=== PATIENT | male | born 1995 | race Caucasian/White ===

== ENCOUNTER 2023-04-12 20:42 | Emergency (ER) | payer SELFPAY ==
[~2023-04-12] VITALS: Ht 185 cm; Wt 131.0 kg
[2023-04-12 21:00] VITALS: BP 151/93
[2023-04-12] MEDS ORDERED: Tetanus/Diphtheria/Pertussis (Acell) ADULT Vaccine 0.5 ML IM ONE (21:15)
--- NOTE | 2023-04-12 21:16 | ED Upper Extremity ---
General Chief Complaint: Foreign Body Stated Complaint: INJ RIGHT THUMB Nursing Triage Note: PT AMB TO TRIAGE, PT HAS TREBLE HOOK IN R THUMB. PT RATES PAIN 4/10 Source: patient Exam Limitations: no limitations (ALANA LONDON APRN) History of Present Illness Date Seen by Provider: Apr 12, 2023 Time Seen by Provider: 21:13 Initial Comments 28-year-old male presents to the ER with a fishhook in his right thumb. States it occurred just before 8 PM. Tetanus is not up-to-date. (ALANA LONDON APRN) Allergies and Home Medications Allergies Coded Allergies: No Known Drug Allergies (Unverified , 04/12/23) Patient Home Medication List Home Medication List Reviewed: Yes (ALANA LONDON APRN) Sulfamethoxazole/Trimethoprim (Bactrim Ds Tablet) 1 Each Tablet, 1 EACH PO BID Prescribed by: Alana Lindsey on 04/12/232153 Review of Systems Constitutional: see HPI (ALANA LONDON APRN) Past Sytncrq-Zeixgs-Cgirti Hx Patient Social History Tobacco Use?: No Smokeless Tobacco Frequency: Current Everyday User Substance use?: No Alcohol Use?: Yes Alcohol type: Beer Alcohol Frequency: Once in a while Pt feels they are or have been: No (ALANA LONDON APRN) Past Medical History Surgery/Hospitalization HX: HERNIA IN[facility] (ALANA LONDON APRN) Physical Exam Vital Signs Vital Signs - First Documented 04/12/23 21:00 Temp 36.4 Pulse 98 Resp 18 B/P (MAP) 151/93 (112) Pulse Ox 95 (YOLIS,IRENE K DO) Vital Signs Capillary Refill : Less Than 3 Seconds (ALANA LONDON APRN) Height, Weight, BMI Height: '" Weight: lbs. oz. kg; 38.00 BMI Method: General Appearance: WD/WN, no apparent distress Neck: supple, normal inspection Cardiovascular: regular rate, rhythm Respiratory: lungs clear, normal breath sounds, no respiratory distress, no accessory muscle use Hand: Right ([place] in distal end of right thumb) Neurologic/Psychiatric: alert, normal mood/affect Skin: normal color, warm/dry (ALANA LONDON APRN) Procedures/Interventions I&D : Site: Distal end of right thumb Progress Hematoma block performed of splint of right thumb at location of fishhook with 1 mL of 1% lidocaine, fishhook was pushed through, barbed and was cut with wire cutters, and fishhook was removed. Patient tolerated procedure well. (ALANA LONDON APRN) Progress/Results/Core Measures Results/Orders Medications Given in ED Current Medications Medications Dose Ordered Sig/Rina Route Start Time Stop Time Status Last Admin Dose Admin Diphtheria/ Tetanus/Acell Pertussis 0.5 ml ONCE ONCE IM 04/12/23 21:15 04/12/23 21:16 DC 04/12/23 22:08 0.5 ML Trimethoprim/ Sulfamethoxazole 1 ea ONCE ONCE PO 04/12/23 22:00 04/12/23 22:01 DC 04/12/23 22:08 1 EA (IRENE LAGOS DO) Vital Signs/I&O 04/12/23 21:00 Temp 36.4 Pulse 98 Resp 18 B/P (MAP) 151/93 (112) Pulse Ox 95 (IRENE LAGOS DO) Blood Pressure Mean: 112 Progress Progress Note : Progress Note Patient seen and evaluated, resting comfortably in recliner, no acute distress. Tetanus ordered. [place] removed, see procedure note. First dose of Bactrim ordered, will discharge with prescription for Bactrim. Discharge instructions and return precautions provided. (ALANA LONDON APRN) Departure Impression Primary Impression: Foreign body in skin Disposition: 01 HOME, SELF-CARE Condition: Stable Departure-Patient Inst. Decision time for Depature: 21:52 (ALANA LONDON APRN) Referrals: NO,LOCAL PHYSICIAN (PCP) Primary Care Physician Patient Instructions: Foreign Body in Skin Add. Discharge Instructions: Complete full course of antibiotic as directed. Return for any new, concerning, or worsening symptoms. All discharge instructions reviewed with patient and/or family. Voiced understanding. Scripts Sulfamethoxazole/Trimethoprim (Bactrim Ds Tablet) 1 Each Tablet 1 EACH PO BID for 7 Days, #13 TAB 0 Refills Prov: ALANA LONDON APRN 04/12/23 ATTENDING PHYSICIAN NOTE: I WAS PHYSICALLY PRESENT ER PHYSICIAN, BUT I WAS NOT INVOLVED IN ANY DECISION MAKING OR ANY CARE OF THIS PATIENT AND I AM NOT COLLABORATING PHYSICIAN. (YOLISIRENE Montague BRITTANY R APRN Apr 12, 2023 21:16 IRENE LAGOS DO Apr 13, 2023 05:46
[2023-04-12] MEDS ORDERED: SULF1TAB38 PO (21:54)
[2023-04-12] MEDS ORDERED: TRIM/SULFAMETH 160/800 (SEPTRA DS) TAB PO ONE (22:00)
== END 2023-04-12 22:11 | disposition home or self-care (01) ==
LOC: EDUNIT# 20:42 → ER 20:45
DX: S60.351A Superficial foreign body of right thumb, initial encounter (principal); F17.290 Nicotine dependence, other tobacco product, uncomplicated; Z23 Encounter for immunization; W45.8XXA Other foreign body or object entering through skin, initial encounter
CPT/HCPCS: 90715; 99284